=== PATIENT | male | born 1995 | race Caucasian/White ===

== ENCOUNTER → 2019-03-12 | Outpatient (CLI) | payer MEDICAID ==
[2019-03-12 08:03] LABS: HCT 43.3 % (39.0-53.0); HGB 14.4 gm/dL (13.0-17.5); MCH 27.7 pg (25.0-35.0); MCHC 33.4 g/dL (31.0-37.0); MCV 82.9 fL (80.0-100.0); Mean Platelet Volume 7.5; Platelet Count 327 k/uL (150-450); RBC 5.22 m/uL (4.30-5.90); RDW 12.1 % (11.5-15.5); WBC 8.1 k/uL (3.8-10.6)
[2019-03-12 12:06] LABS: Erythrocyte Sedimentation Rate 9 mm/hr (0-15)
[2019-03-13 13:29] LABS: Apple IgE Class CLASS 2; Beef IgE <0.10 kU/L (<0.10); Beef IgE Class CLASS 0; Pork IgE Class CLASS 0; Yeast Bakers/Brew IgE <0.10 kU/L (<0.10)
[2019-03-13 13:30] LABS: Chicken IgE Class CLASS 0; Gluten IgE Class CLASS 0; Latex IgE Class CLASS 0
[2019-03-13 13:31] LABS: Alt. alternata IgE Class CLASS 0; Alternaria alternata IgE <0.10 kU/L (<0.10); Asperg. fumagatus IgE <0.10 kU/L (<0.10); Asperg. fumagatus IgE Class CLASS 0; Aureo. pullulans IgE <0.10 kU/L (<0.10); Aureo. pullulans IgE Class CLASS 0; Avocado Class CLASS 0; Banana IgE Class CLASS 0; Birch(Com.Silvr) IgE Class CLASS 4; Candida albicans IgE Class CLASS 0; Cat Epith & Dander IgE 0.11 kU/L (<0.10); Cat Epith & Dander IgE Class CLASS 0/1; Clad herbarum IgE <0.10 kU/L (<0.10); Clad herbarum IgE Class CLASS 0; Cockroach IgE 2.01 kU/L (<0.10); Com. Pigweed IgE <0.10 kU/L (<0.10); Com. Pigweed IgE Class CLASS 0; Cottonwood IgE <0.10 kU/L (<0.10); Cow's Milk IgE Class CLASS 0; Dermato. Pteronyssinus Class CLASS 0; Dermato. Pteronyssinus IgE <0.10 kU/L (<0.10); Dermato. farinae IgE <0.10 kU/L (<0.10); Dermato. farinae IgE Class CLASS 0; Dog Dander IgE 0.11 kU/L (<0.10); Egg White IgE <0.10 kU/L (<0.10); English Plantain IgE Class CLASS 0; Epicoccum purpurascens Class CLASS 0; Epicoccum purpurascens IgE <0.10 kU/L (<0.10); Hazelnut IgE Class CLASS 3; Johnson Grass IgE Class CLASS 0; Kiwi IgE 1.03 kU/L (<0.10); Kiwi IgE Class CLASS 2; Lamb's Quarter IgE 0.11 kU/L (<0.10); Lamb's Quarter IgE Class CLASS 0/1; Maple (Box Elder) IgE 0.22 kU/L (<0.10); Maple (Box Elder) IgE Class CLASS 0/1; Mucor racemosus IgE <0.10 kU/L (<0.10); Mucor racemosus IgE Class CLASS 0; Potato IgE <0.10 kU/L (<0.10); Potato IgE Class CLASS 0; Rhizopus nigricans IgE <0.10 kU/L (<0.10); S.rostrata/Helminth Class CLASS 0; S.rostrata/Helminth IgE <0.10 kU/L (<0.10); Soybean IgE 0.14 kU/L (<0.10); Sycamore(Mpl.Lf) IgE <0.10 kU/L (<0.10); Timothy Grass IgE <0.10 kU/L (<0.10); Walnut Tree IgE <0.10 kU/L (<0.10); Walnut Tree IgE Class CLASS 0; White Ash IgE Class CLASS 0/1
== END | disposition home or self-care (01) ==
LOC: LABWHC1 07:39
PROVIDERS: ATTEND Nurse Practitioner Family
DX: L50.0 Allergic urticaria (principal); J30.89 Other allergic rhinitis; B44.89 Other forms of aspergillosis
CPT/HCPCS: 36415; 85027; 85652; 86003; 86038; 86160